=== PATIENT | male | born 1970 | race Caucasian/White ===

== ENCOUNTER 2020-01-09 20:17 | Emergency (ER) | payer BC ==
[~2020-01-09] VITALS: Ht 190.5 cm; Wt 90.7 kg
[2020-01-09] MEDS ORDERED: AMOXICILLIN500 M1 PO (20:57)
[2020-01-09] MEDS ORDERED: NORCO 5-325 TA1 EAC2 PO (20:57)
[2020-01-09 21:07] VITALS: BP 169/89
== END 2020-01-09 21:07 | disposition home or self-care (01) ==
LOC: M.ERS 20:17
DX: K02.9 Dental caries, unspecified (principal)